=== PATIENT | male | born 1950 | race Hispanic/Latino ===

== ENCOUNTER 2019-05-29 00:01 | Emergency (ER) | payer OTHER ==
[~2019-05-29 00:01] MED LIST: AEC81 PO; MULT1CAP32 PO
[2019-05-29 00:33] LABS: APPEARANCE,URINE Clear (CLEAR); BILIRUBIN,URINE Negative (NEGATIVE); COLOR,URINE Yellow (YELLOW); GLUCOSE, URINE (UA) Negative (NEGATIVE); KETONES,URINE Negative (NEGATIVE); LEUKOCYTE ESTERASE ,URINE Trace (NEGATIVE); NITRATE,URINE Negative (NEGATIVE); OCCULT BLOOD,URINE Nonhemolyzed Trace (NEGATIVE); PH,URINE 5.5 (5.0-8.0); PROTEIN,URINE Negative (NEGATIVE); UROBILINOGEN,URINE 0.2 mg/dL (0.2-1.0)
[2019-05-29 00:40] LABS: BASOPHILS % (AUTO) 0.4 % (0.0-5.0); EOSINOPHILS % (AUTO) 3.9 % (0.0-8.0); HEMATOCRIT 39.5 % (42-54); LYMPHOCYTES % (AUTO) 14.3 % (21.0-51.0); MEAN CORPUSCULAR HEMOGLOBIN 28.4 pg (27.0-33.0); MEAN CORPUSCULAR HGB CONC 32.4 g/dL (32.0-36.0); MEAN CORPUSCULAR VOLUME 87.6 fL (79-99); MONOCYTES % (AUTO) 7.5 % (3.0-13.0); NEUTROPHILS % (AUTO) 73.7 % (40.0-77.0); PLATELET COUNT (AUTO) 235 K/uL (130-400); RED BLOOD CELL COUNT(AUTO) 4.51 MIL/uL (4.50-6.20); RED CELL DISTRIBUTION WIDTH 13.5 % (11.0-15.5); WHITE BLOOD COUNT (AUTO) 9.4 K/uL (4.8-10.8)
[2019-05-29 00:43] LABS: CREATININE 0.9 mg/dL (0.5-1.5); POTASSIUM 3.8 mmol/L (3.5-5.1)
[2019-05-29 00:54] LABS: BACTERIA,URINE Rare /HPF (None Seen); CALCIUM OXALATE CRYSTALS,UR Few /LPF (None Seen); SQUAMOUS EPITHELIAL CELL,UR 0-2 /HPF (0-2)
[2019-05-29 01:08] LABS: INR 0.96 (0.85-1.15); PARTIAL THROMBOPLASTIN TIME 26.7 SEC (26.3-35.5); PROTHROMBIN TIME 10.1 SEC (9.6-11.6)
[2019-05-29] MEDS ORDERED: CEPHALEXIN 500 MG CAPSULE ONE (01:20)
== END 2019-05-29 01:43 | disposition home or self-care (01) ==
LOC: EDH 00:01
DX: N30.01 Acute cystitis with hematuria (principal); E11.9 Type 2 diabetes mellitus without complications; E78.00 Pure hypercholesterolemia, unspecified; Z79.899 Other long term (current) drug therapy
CPT/HCPCS: 36415; 80048; 81001; 85025; 85610; 85730; 87088

== ENCOUNTER 2021-01-27 16:43 | Inpatient (IN) | payer MEDICARE, OTHER ==
[~2021-01-27] VITALS: Ht 165.1 cm; Wt 74.5 kg
[2021-01-27] VITALS (20 sets, daily range): BP systolic 110–191; BP diastolic 47–86
[2021-01-27 16:57] LABS: BASOPHILS % (AUTO) 0.5 % (0.0-5.0); EOSINOPHILS % (AUTO) 1.4 % (0.0-8.0); LYMPHOCYTES % (AUTO) 16.3 % (21.0-51.0); MEAN CORPUSCULAR HEMOGLOBIN 28.6 pg (27.0-33.0); MEAN CORPUSCULAR VOLUME 86.6 fL (79-99); MONOCYTES % (AUTO) 7.7 % (3.0-13.0); NEUTROPHILS % (AUTO) 73.8 % (40.0-77.0); PLATELET COUNT (AUTO) 286 K/uL (130-400); RED BLOOD CELL COUNT(AUTO) 4.62 MIL/uL (4.50-6.20); RED CELL DISTRIBUTION WIDTH 13.2 % (11.0-15.5); WHITE BLOOD COUNT (AUTO) 10.5 K/uL (4.8-10.8)
[2021-01-27] MEDS ORDERED: METOPROLOL TARTRATE 1 MG/ML 5ML VIAL IV ONE (16:57)
[2021-01-27] MEDS ORDERED: ATROPINE 1MG SYG IVP ONE (16:58)
[2021-01-27] MEDS ORDERED: HEPARIN 10,000 UNIT/10ML (1,000 UNIT/ML) VIAL ONE (16:58)
[2021-01-27] MEDS ORDERED: DOPAMINE HCL 400 MG/D5%-WATER 0 ML IV ONE (16:59)
[2021-01-27] MEDS ORDERED: LIDOCAINE HCL 400MG/20ML VIAL ONE (16:59)
[2021-01-27] MEDS ORDERED: IOHEXOL 350 MG/ML 100ML INFUS..BTL IV ONE (16:59)
[2021-01-27] MEDS ORDERED: PHARMACY COMMUNICATION MISC SCH ×2 (17:00→18:30)
[2021-01-27] MEDS ORDERED: HEPARIN 5,000 UNIT VIAL IV SCH (17:00)
[2021-01-27] MEDS ORDERED: NITROGLYCERIN 1GM OINT 1 INCH/1GM TD ONE (17:00)
[2021-01-27] MEDS ORDERED: 0.9%NACL 1000ML 1,000 ML IV SCH (17:00)
[2021-01-27] MEDS ORDERED: CLOPIDOGREL 300MG TAB PO ONE (17:00)
[2021-01-27 17:06] LABS: INR 1.05 (0.85-1.15); PROTHROMBIN TIME 11.4 SEC (9.6-11.6)
[2021-01-27 17:07] LABS: PARTIAL THROMBOPLASTIN TIME 27.7 SEC (26.3-35.5)
[2021-01-27 17:12] LABS: ALBUMIN 3.9 g/dL (3.5-5.0); BILIRUBIN,TOTAL 0.5 mg/dL (0.2-1.0); CREATININE 1.1 mg/dL (0.5-1.5); POTASSIUM 3.8 mmol/L (3.5-5.1); TOTAL PROTEIN, SERUM 7.6 g/dL (6.0-8.3)
[2021-01-27] MEDS ORDERED: HEPARIN 5,000 UNIT VIAL ONE (17:14)
[2021-01-27 17:30] LABS: B-TYPE NATRIURETIC PEPTIDE 125 pg/mL (0-100)
[2021-01-27] MEDS ORDERED: EPTIFIBATIDE 75MG/100ML BOTTLE 100 ML IV ONE ×2 (17:30)
[2021-01-27] MEDS ORDERED: ACETAMINOPHEN 325 MG TAB PO PRN ×2 (17:30)
[2021-01-27] MEDS ORDERED: HYDRALAZINE 20MG/ML VIAL IV PRN (17:30)
[2021-01-27] MEDS ORDERED: ONDANSETRON 4MG INJ IV PRN (17:30)
[2021-01-27] MEDS ORDERED: LACTULOSE 20 GM/30 ML UDCUP PO PRN (17:30)
[2021-01-27] MEDS ORDERED: EPTIFIBATIDE 2 MG/ML 10 ML VIAL IVP ONE ×2 (17:30→17:42)
[2021-01-27] MEDS ORDERED: HEPARIN 25,000 UNITS/250ML D5W 250 ML IV ONE (17:42)
[2021-01-27 17:50] LABS: CHOLESTEROL 212 mg/dL (<200); HDL CHOLESTEROL 58 mg/dL (29-71); LDL DIRECT 128 mg/dL (0-99); TRIGLYCERIDES 106 mg/dL (30-200)
[2021-01-27] MEDS ORDERED: ONDANSETRON 4MG INJ IVP PRN (18:00)
[2021-01-27] MEDS ORDERED: ACETAMINOPHEN WITH CODEINE 1 TAB TAB PO PRN ×2 (18:00)
[2021-01-27] MEDS ORDERED: TEMAZEPAM 30 MG CAP PO PRN (18:00)
[2021-01-27] MEDS ORDERED: MORPHINE 5 MG/ML VIAL (5MG OR GREATER DOSE) IVP SCH ×2 (18:00)
[2021-01-27] MEDS: EPTIFIBATIDE 75MG/100ML BOTTLE 100 ML IV SCH (18:00)
[2021-01-27] MEDS ORDERED: ONDANSETRON 4MG INJ IVP SCH (18:00)
[2021-01-27] MEDS ORDERED: HEPARIN 25,000 UNITS/250ML D5W 250 ML IV SCH (18:30)
[2021-01-27] MEDS ORDERED: FAMOTIDINE 20MG VIAL IV SCH (21:00)
[2021-01-27] MEDS: ATORVASTATIN 40 MG TABLET PO SCH (21:44)
[2021-01-27] MEDS: METOPROLOL TARTRATE 25 MG TAB PO SCH (21:44)
[2021-01-27] MEDS: FAMOTIDINE 20MG VIAL IV SCH (21:44)
[2021-01-28] VITALS (62 sets, daily range): BP systolic 96–146; BP diastolic 43–84
[2021-01-28] MEDS: EPTIFIBATIDE 75MG/100ML BOTTLE 100 ML IV SCH (00:35)
[2021-01-28 02:18] LABS: HEMATOCRIT 34.9 % (42-54); MEAN CORPUSCULAR HEMOGLOBIN 28.8 pg (27.0-33.0); MEAN CORPUSCULAR HGB CONC 33.2 g/dL (32.0-36.0); MEAN CORPUSCULAR VOLUME 86.6 fL (79-99); RED BLOOD CELL COUNT(AUTO) 4.03 MIL/uL (4.50-6.20); RED CELL DISTRIBUTION WIDTH 13.2 % (11.0-15.5); WHITE BLOOD COUNT (AUTO) 10.6 K/uL (4.8-10.8)
[2021-01-28 02:31] LABS: CREATININE 0.9 mg/dL (0.5-1.5); POTASSIUM 3.5 mmol/L (3.5-5.1)
[2021-01-28] MEDS ORDERED: POTASSIUM CHLORIDE 10% ELIXIR 20 MEQ/15 ML UDCUP PO PRN (08:00)
[2021-01-28] MEDS: FAMOTIDINE 20MG VIAL IV SCH (09:29)
[2021-01-28] MEDS: PANTOPRAZOLE 40 MG TAB DR PO SCH (09:29)
[2021-01-28] MEDS: ASPIRIN 81MG CHEW TAB PO SCH (09:29)
[2021-01-28] MEDS: CLOPIDOGREL 75MG TAB PO SCH (09:30)
[2021-01-28] MEDS: METOPROLOL TARTRATE 25 MG TAB PO SCH ×2 (11:06→21:00)
[2021-01-28] MEDS: KCL 20 MEQ ERTAB PO PRN ×2 (12:49→19:08)
[2021-01-28] MEDS: ATORVASTATIN 40 MG TABLET PO SCH (21:00)
[2021-01-29] VITALS: BP 102/48
[2021-01-29 06:27] VITALS: BP 102/46
[2021-01-29 07:30] VITALS: BP 104/55
[2021-01-29] MEDS: CLOPIDOGREL 75MG TAB PO SCH (08:35)
[2021-01-29] MEDS: PANTOPRAZOLE 40 MG TAB DR PO SCH (08:35)
[2021-01-29] MEDS: ASPIRIN 81MG CHEW TAB PO SCH (08:35)
[2021-01-29] MEDS: METOPROLOL TARTRATE 25 MG TAB PO SCH (08:39)
[2021-01-29 12:09] VITALS: BP 125/70
[2021-01-29] MEDS ORDERED: METO25 PO (12:56)
[2021-01-29] MEDS ORDERED: ATOR40TA69 PO (12:56)
[2021-01-29] MEDS ORDERED: CLOP75TA14 PO (12:56)
[2021-01-29] MEDS ORDERED: ASPI-1005 PO (12:56)
== END 2021-01-29 15:36 | disposition home or self-care (01) | DRG 246 ==
LOC: EDH 16:43 → EDHIP 17:16 → 2CH 18:30 → 4AH 01-28 22:34
PROVIDERS: ADMIT Internal Medicine; ATTEND Internal Medicine
PROC: 027034Z Dilation of Coronary Artery, One Artery with Drug-eluting Intraluminal Device, Percutaneous Approach (ICD-10-PCS; principal; 2021-01-27)
PROC: 4A023N7 Measurement of Cardiac Sampling and Pressure, Left Heart, Percutaneous Approach (ICD-10-PCS; 2021-01-27)
PROC: B2111ZZ Fluoroscopy of Multiple Coronary Arteries using Low Osmolar Contrast (ICD-10-PCS; 2021-01-27)
DX: I21.19 ST elevation (STEMI) myocardial infarction involving other coronary artery of inferior wall (principal); I50.33 Acute on chronic diastolic (congestive) heart failure; E11.9 Type 2 diabetes mellitus without complications; E78.5 Hyperlipidemia, unspecified; I25.10 Atherosclerotic heart disease of native coronary artery without angina pectoris; Z20.822 Contact with and (suspected) exposure to COVID-19; I11.0 Hypertensive heart disease with heart failure
CPT/HCPCS: 36415; 71045; 80048; 80053; 80061; 82550; 82948; 83880; 84484; 85025; 85027; 85610; 85730; 87635; 93005; 93306; 93356; 93454; 99291; C1769; C1887; C1894; C9606; G0378; J0461; J1265; J1327; J1644; J3490; Q9967

== ENCOUNTER → 2021-03-04 | Outpatient (CLI) | payer MEDICARE ==
[~2021-03-04] VITALS: Ht 170.2 cm; Wt 71.7 kg
[~2021-03-04] MED LIST changes: +ASPI-1005 PO; +ATOR40TA69 PO; +CLOP75TA14 PO; +METO25 PO; +REGADENOSON 0.4 MG/5 ML PF SYG IVP SCH
== END | disposition home or self-care (01) ==
LOC: SHCH 09:09
PROVIDERS: ATTEND Internal Medicine Cardiovascular Disease
DX: I25.10 Atherosclerotic heart disease of native coronary artery without angina pectoris (principal); I50.33 Acute on chronic diastolic (congestive) heart failure
CPT/HCPCS: 78452; 93017; 96374; A9500 ×2; J2785

== ENCOUNTER 2022-06-09 11:13 | Emergency (ER) | payer MEDICARE ==
[~2022-06-09] VITALS: Ht 185.4 cm; Wt 70.8 kg
[~2022-06-09 11:13] MED LIST changes: +CLOP-31 PO; -CLOP75TA14 PO; -REGADENOSON 0.4 MG/5 ML PF SYG IVP SCH
[2022-06-09 11:45] LABS: BASOPHILS % (AUTO) 0.2 % (0.0-5.0); EOSINOPHILS % (AUTO) 0.8 % (0.0-8.0); HEMATOCRIT 43.3 % (42-54); LYMPHOCYTES % (AUTO) 4.1 % (21.0-51.0); MEAN CORPUSCULAR HEMOGLOBIN 29.1 pg (27.0-33.0); MEAN CORPUSCULAR HGB CONC 33.5 g/dL (32.0-36.0); MEAN CORPUSCULAR VOLUME 86.9 fL (79-99); NEUTROPHILS % (AUTO) 90.5 % (40.0-77.0); PLATELET COUNT (AUTO) 214 K/uL (130-400); RED BLOOD CELL COUNT(AUTO) 4.98 MIL/uL (4.50-6.20); WHITE BLOOD COUNT (AUTO) 13.1 K/uL (4.8-10.8)
[2022-06-09 11:59] LABS: POTASSIUM 3.8 mmol/L (3.5-5.1)
[2022-06-09] MEDS ORDERED: ASPIRIN 81MG CHEW TAB PO SCH (12:00)
[2022-06-09 12:04] LABS: ALBUMIN 3.8 g/dL (3.5-5.0); TOTAL PROTEIN, SERUM 7.3 g/dL (6.0-8.3)
[2022-06-09 15:39] VITALS: BP 125/54
== END 2022-06-09 15:41 | disposition home or self-care (01) ==
LOC: EDH 11:13
DX: R07.89 Other chest pain (principal); E11.9 Type 2 diabetes mellitus without complications; E78.00 Pure hypercholesterolemia, unspecified; I10 Essential (primary) hypertension; Z79.82 Long term (current) use of aspirin; Z95.5 Presence of coronary angioplasty implant and graft; Z79.899 Other long term (current) drug therapy
CPT/HCPCS: 36415; 71045; 80053; 84484; 85025; 93005

== ENCOUNTER → 2022-08-22 | Outpatient (CLI) | payer MEDICARE ==
[~2022-08-22] MED LIST changes: +REGADENOSON 0.4 MG/5 ML PF SYG IVP ONE
== END | disposition home or self-care (01) ==
LOC: SHCH 09:47
PROVIDERS: ATTEND Internal Medicine Cardiovascular Disease
DX: R94.39 Abnormal result of other cardiovascular function study (principal); R07.9 Chest pain, unspecified
CPT/HCPCS: 78452; 96374; 93017; J2785; A9500 ×2

== ENCOUNTER 2022-09-26 06:07 | Day surgery (SDC) | payer MEDICARE ==
[2022-09-22 09:45] LABS: BASOPHILS % (AUTO) 0.8 % (0.0-5.0); EOSINOPHILS % (AUTO) 5.7 % (0.0-8.0); HEMATOCRIT 40.9 % (42-54); LYMPHOCYTES % (AUTO) 16.6 % (21.0-51.0); MEAN CORPUSCULAR HEMOGLOBIN 28.9 pg (27.0-33.0); MEAN CORPUSCULAR VOLUME 90.3 fL (79-99); MONOCYTES % (AUTO) 6.8 % (3.0-13.0); NEUTROPHILS % (AUTO) 69.7 % (40.0-77.0); PLATELET COUNT (AUTO) 228 K/uL (130-400); RED BLOOD CELL COUNT(AUTO) 4.53 MIL/uL (4.50-6.20); RED CELL DISTRIBUTION WIDTH 13.4 % (11.0-15.5); WHITE BLOOD COUNT (AUTO) 7.7 K/uL (4.8-10.8)
[2022-09-22 09:47] VITALS: BP 184/69
[2022-09-22 10:00] LABS: APPEARANCE,URINE CLEAR (CLEAR); BILIRUBIN,URINE NEGATIVE (NEGATIVE); COLOR,URINE LIGHT-YELLOW (YELLOW); GLUCOSE, URINE (UA) NEGATIVE (NEGATIVE); KETONES,URINE NEGATIVE (NEGATIVE); LEUKOCYTE ESTERASE ,URINE NEGATIVE Leu/uL (NEGATIVE); NITRATE,URINE NEGATIVE (NEGATIVE); OCCULT BLOOD,URINE NEGATIVE (NEGATIVE); PROTEIN,URINE NEGATIVE (NEGATIVE); UROBILINOGEN,URINE 0.2 mg/dL (0.2-1.0)
[2022-09-22 10:16] LABS: INR 1.05 (0.85-1.15); PROTHROMBIN TIME 11.4 SEC (9.6-11.6)
[2022-09-22 10:17] LABS: PARTIAL THROMBOPLASTIN TIME 30.6 SEC (26.3-35.5)
[2022-09-22 10:28] LABS: CREATININE 0.9 mg/dL (0.5-1.5); POTASSIUM 4.8 mmol/L (3.5-5.1)
[2022-09-22 10:51] LABS: B-TYPE NATRIURETIC PEPTIDE 159 pg/mL (0-100)
[~2022-09-26] VITALS: Ht 167.6 cm; Wt 71.1 kg
[2022-09-26] VITALS (9 sets, daily range): BP systolic 103–160; BP diastolic 50–68
[~2022-09-26 06:07] MED LIST changes: -AEC81 PO; -ASPI-1005 PO; -MULT1CAP32 PO; -REGADENOSON 0.4 MG/5 ML PF SYG IVP ONE
[2022-09-26] MEDS ORDERED: 0.9%NACL 1000ML 1,000 ML IV ONE (06:33)
[2022-09-26] MEDS ORDERED: LIDOCAINE HCL 400MG/20ML VIAL ONE (07:05)
[2022-09-26] MEDS ORDERED: MIDAZOLAM HCL 1 MG/ML 2ML VIAL ONE (07:06)
[2022-09-26] MEDS ORDERED: IOHEXOL-350 75 ML VIAL IV ONE ×2 (07:06→07:33)
[2022-09-26] MEDS ORDERED: HYDRALAZINE 20MG/ML VIAL ONE (07:29)
[2022-09-26] MEDS ORDERED: IOHEXOL-350 50ML VIAL IV ONE (07:32)
[2022-09-26] MEDS ORDERED: HEPARIN 10,000 UNIT/10ML (1,000 UNIT/ML) VIAL ONE (07:33)
[2022-09-26] MEDS ORDERED: NITROGLYCERIN 4.1 GM SPRAY TL ONE (07:35)
[2022-09-26] MEDS ORDERED: LISI10TA24 PO (07:38)
[2022-09-26] MEDS ORDERED: METF-446 PO (07:38)
[2022-09-26] MEDS ORDERED: ISOS10TA8 PO (07:38)
[2022-09-26] MEDS ORDERED: EZET10TA48 PO (07:38)
[2022-09-26] MEDS ORDERED: GLUCAGON 1MG KIT 1 MG ML IM PRN (08:00)
[2022-09-26] MEDS ORDERED: DEXTROSE 50%-WATER 50 ML DISP.SYRIN IV PRN (08:00)
== END 2022-09-26 12:40 | disposition home or self-care (01) ==
LOC: DAH 06:07
PROVIDERS: ATTEND Internal Medicine Cardiovascular Disease
DX: I25.118 Atherosclerotic heart disease of native coronary artery with other forms of angina pectoris (principal); T82.855A Stenosis of coronary artery stent, initial encounter; I10 Essential (primary) hypertension; E10.9 Type 1 diabetes mellitus without complications; E78.5 Hyperlipidemia, unspecified; Z79.01 Long term (current) use of anticoagulants; Z79.899 Other long term (current) drug therapy; Z95.5 Presence of coronary angioplasty implant and graft; Z79.84 Long term (current) use of oral hypoglycemic drugs; Z79.82 Long term (current) use of aspirin; Y83.8 Other surgical procedures as the cause of abnormal reaction of the patient, or of later complication, without mention of misadventure at the time of the procedure; Y92.89 Other specified places as the place of occurrence of the external cause
CPT/HCPCS: 80048; 83880; 85025; 85610; 85730; 81003; 36415; 71045; 93005; 93458; 82948 ×2; C1894; C1760; Q9965; J3490; J7030; J0360; J1644; Q9967 ×2; A4222; A4221; A4663; A4216; A4606; A4223 ×3; J2250

== ENCOUNTER 2023-01-22 11:38 | Emergency (ER) | payer MEDICARE ==
[~2023-01-22] VITALS: Ht 170.2 cm; Wt 71.2 kg
[~2023-01-22 11:38] MED LIST changes: +AEC81 PO; -CLOP-31 PO; +EZET10TA48 PO; -METO25 PO
[2023-01-22 13:26] LABS: BASOPHILS # (AUTO) 0.06 K/uL (0.00-0.20); BASOPHILS % (AUTO) 0.7 % (0.0-5.0); EOSINOPHILS # (AUTO) 0.27 K/uL (0.00-0.70); HEMATOCRIT 38.4 % (42-54); IMMATURE GRANULOCYTE ABSOLUTE 0.02 K/uL (0-1); LYMPHOCYTES # (AUTO) 1.4 K/uL (1.0-4.8); LYMPHOCYTES % (AUTO) 15.5 % (21.0-51.0); MEAN CORPUSCULAR HEMOGLOBIN 27.3 pg (27.0-33.0); MEAN CORPUSCULAR VOLUME 85.3 fL (79-99); MONOCYTES # (AUTO) 0.7 K/uL (0.1-1.0); MONOCYTES % (AUTO) 7.2 % (3.0-13.0); NEUTROPHILS # (AUTO) 6.6 K/uL (1.8-7.7); NEUTROPHILS % (AUTO) 73.4 % (40.0-77.0); PLATELET COUNT (AUTO) 237 K/uL (130-400); RED CELL DISTRIBUTION WIDTH 14.7 % (11.0-15.5)
[2023-01-22 13:34] LABS: CREATININE 0.9 mg/dL (0.5-1.5); POTASSIUM 4.7 mmol/L (3.5-5.1)
[2023-01-22 13:36] LABS: ADD UA MICROSCOPIC YES
[2023-01-22 13:39] LABS: ALBUMIN 3.7 g/dL (3.5-5.0); BILIRUBIN,TOTAL 0.5 mg/dL (0.2-1.0); TOTAL PROTEIN, SERUM 6.9 g/dL (6.0-8.3)
[2023-01-22 13:43] LABS: APPEARANCE,URINE CLOUDY (CLEAR); BILIRUBIN,URINE NEGATIVE (NEGATIVE); COLOR,URINE LIGHT-BROWN (YELLOW); GLUCOSE, URINE (UA) NEGATIVE (NEGATIVE); KETONES,URINE NEGATIVE (NEGATIVE); LEUKOCYTE ESTERASE ,URINE 500 Leu/uL (NEGATIVE); NITRATE,URINE NEGATIVE (NEGATIVE); OCCULT BLOOD,URINE LARGE (NEGATIVE); PH,URINE 5.5 (5.0-8.0); PROTEIN,URINE 30 mg/dL (NEGATIVE); UROBILINOGEN,URINE 0.2 mg/dL (0.2-1.0)
[2023-01-22 14:25] LABS: BACTERIA,URINE FEW /HPF (None Seen); RBC,URINE TNTC /HPF (0-1); SQUAMOUS EPITHELIAL CELL,UR RARE /HPF (0-2); UNCLASSIFIED CRYSTAL 4 /HPF (None Seen); WBC,URINE 51-100 /HPF (0-1)
[2023-01-22] MEDS ORDERED: CEFTRIAXONE 1G VIAL IVPB ONE (15:00)
[2023-01-22] MEDS ORDERED: IOHEXOL-350 75 ML VIAL IV ONE (15:43)
[2023-01-22] MEDS ORDERED: CEPH500B PO (16:40)
[2023-01-22 17:18] VITALS: BP 163/75; PULSE 66; RESP 16; O2SAT 98
== END 2023-01-22 17:20 | disposition home or self-care (01) ==
LOC: EDH 11:38
DX: N39.0 Urinary tract infection, site not specified (principal); K80.20 Calculus of gallbladder without cholecystitis without obstruction; R31.9 Hematuria, unspecified; I10 Essential (primary) hypertension; I25.2 Old myocardial infarction; E78.00 Pure hypercholesterolemia, unspecified; E11.9 Type 2 diabetes mellitus without complications
CPT/HCPCS: 99285; 74177; 96365; 80053; 85025; 87077; 87088; 87186; 81001; 36415; J0696; Q9967